=== PATIENT | male | born 1970 ===

== ENCOUNTER 2016-12-25 14:03 | Emergency (ER) | payer BC, OTHER ==
[2016-12-25 14:54] VITALS: BP 126/85
--- NOTE | 2016-12-25 15:33 | RAD ---
INDICATION: Pain at the left small proximal interphalangeal joint TECHNIQUE: 3 views of the left small finger were obtained. FINDINGS: There is an obliquely oriented fracture involving the distal pole of the left small finger proximal phalanx extending from the palmar surface of the distal diaphysis to the distal dorsal corner of the distal head of the bone. On the lateral view there is a small degree of dorsal angulation of the fracture site. Remaining visualized bones are intact and appropriately aligned. IMPRESSION: FRACTURE INVOLVING THE DISTAL POLE OF THE LEFT SMALL FINGER PROXIMAL PHALANX DESCRIBED ABOVE.
--- NOTE | 2016-12-25 16:05 | UC ---
Upper Extremity HPI - HPI Summary HPI Summary: Patient presents with left small finger pain after falling onto a rock. He notes to immediate pain at 10/10 which has now resolved to a 7/10 only with palpation and movement. Slight numbness, no tingling. Denies temperature or color changes. There is good cap refill and blood flow to the hand and finger. He denies other injuries including hitting his head or LOC. Denies pain in the wrist, forearm and elbow. - History of Current Complaint Chief Complaint: UCUpperExtremity Stated Complaint: FINGER INJURY Time Seen by Provider: 12/25/16 15:11 Hx Obtained From: Patient ?: No Onset/Duration: Sudden Onset Severity Initially: Mild Severity Currently: Mild Pain Intensity: 2 Pain Scale Used: 0-10 Numeric Location Of Pain: Is Discrete @ - left little finger Character: Aching Aggravating Factor(s): Movement, Lifting, Flexion, Extension, Internal/External Rotation Alleviating Factor(s): Compression, Elevation Associated Signs And Symptoms: Positive: Swelling Related History: Dominant Hand Right - Risk Factors Non-Orthopedic Risk Factor: Negative DVT Risk Factors: Negative Septic Arthritis Risk Factor: Negative Compartment Syndrome Risk Factors: Pain - Allergies/Home Medications Allergies/Adverse Reactions: Allergies Allergy/AdvReac Type Severity Reaction Status Date / Time No Known Allergies Allergy Verified 12/25/16 14:54 PMH/Surg Hx/FS Hx/Imm Hx Previously Healthy: Yes - Surgical History Surgical History: Yes Surgery Procedure, Year, and Place: appendectomy, hernia - Social History Occupation: Employed Full-time Lives: With Family Alcohol Use: Weekly Alcohol Amount: socially Substance Use Type: None Substance Use Comment - Amount & Last Used: coffee Smoking Status (MU): Never Smoked Tobacco Review of Systems Constitutional: Negative Skin: Negative Respiratory: Negative Cardiovascular: Negative Motor: Negative - d/t pain and swelling, Decreased ROM Neurovascular: Negative Musculoskeletal: Arthralgia - left little finger injury Neurological: Negative Psychological: Negative Is Patient Immunocompromised?: No All Other Systems Reviewed And Are Negative: Yes Physical Exam Triage Information Reviewed: Yes Appearance: Well-Appearing, Well-Nourished Vital Signs: Initial Vital Signs Temp 98.7 F 12/25/16 14:48 Pulse 61 12/25/16 14:48 Resp 16 12/25/16 14:48 BP 126/85 12/25/16 14:48 Pulse Ox 100 12/25/16 14:48 Vital Signs Reviewed: Yes Eye Exam: Normal Eyes: Positive: Conjunctiva Clear Neck exam: Normal Neck: Positive: Supple, No Lymphadenopathy Respiratory Exam: Normal Respiratory: Positive: Chest non-tender, Lungs clear Cardiovascular Exam: Normal Cardiovascular: Positive: RRR Musculoskeletal Exam: Normal Musculoskeletal: Positive: Strength Intact Neurological Exam: Normal Neurological: Positive: Alert Psychological Exam: Normal Psychological: Positive: Normal Response To Family Skin Exam: Normal Upper Extremity Course/Dx - Course Course Of Treatment: Patient presents to the for evaluation of left small finger fracture. Distal phalynx fracture. Finger was splinted. Pain control given. Denies other symptoms. He is Ok with follow up to ortho clinic. - Differential Dx/Diagnosis Differential Diagnosis/HQI/PQRI: Contusion, Fracture (Open), Fracture (Closed) Provider Diagnoses: Left Little Finger Fracture Discharge - Discharge Plan Condition: Stable Disposition: HOME Prescriptions: Hydrocodone-Acetaminophen [Hydrocodone/Acetaminophen 10-325 mg] 1 tab PO Q4H # 12 tab MDD 6 Patient Education Materials: Finger Fracture (ED) Referrals: No Primary Care Phys,NOPCP [Primary Care Provider] - Trena Larose MD [Medical Doctor] - Additional Instructions: Please follow up with ortho Call tomorrow to make appt I have given you information For any worsening symptoms - return to Keep in splint
== END 2016-12-25 15:53 | disposition home or self-care (01) ==
LOC: UCEAST 14:03
DX: S62.607A Fracture of unspecified phalanx of left little finger, initial encounter for closed fracture (principal); W19.XXXA Unspecified fall, initial encounter; Y92.9 Unspecified place or not applicable
CPT/HCPCS: 73140; 99212; G0463